=== PATIENT | male | born 1945 | race Caucasian/White ===

== ENCOUNTER 2019-08-19 13:13 | Inpatient (IN) | payer OTHER, MEDICARE ==
[~2019-08-19] VITALS: Ht 175.3 cm; Wt 106.5 kg
[2019-08-19 14:28] LABS: URINE BILIRUBIN NEGATIVE (Negative); URINE BLOOD NEGATIVE (Negative); URINE CLARITY CLEAR; URINE COLOR YELLOW; URINE GLUCOSE-RANDOM* NEGATIVE (Negative); URINE KETONES NEGATIVE (Negative); URINE LEUKOCYTES-REFLEX NEGATIVE (Negative); URINE NITRITE-REFLEX NEGATIVE (Negative); URINE PROTEIN (DIPSTICK) NEGATIVE (Negative); URINE SPECIFIC GRAVITY 1.015 (1.005-1.035); URINE UROBILINOGEN 0.2 E.U./dl (0.2-1.0)
[2019-08-19 14:34] LABS: AMP/METHAMP Negative (Negative); BARBITURATES Negative (Negative); BENZODIAZEPINES Negative (Negative); COCAINE Negative (Negative); METHADONE Negative (Negative); OPIATES Negative (Negative); PCP Negative (Negative)
[2019-08-19 14:34] LABS: BASOPHILS 0.6 % (0.0-2.0); EOSINOPHILS 1.6 % (0.0-3.0); HEMATOCRIT 37.4 % (42.0-52.0); LYMPHOCYTES 27.2 % (24.0-44.0); MCHC 34.9 g/dL (28.0-37.0); MCV 91.7 fL (80.0-100.0); MONOCYTES 7.1 % (1.0-8.0); PLATELET COUNT 228 thou/uL (150-400); POLYS 63.5 % (36.0-66.0); RBC 4.08 mil/uL (4.50-6.00); RDW 14.7 % (10.5-14.5); WBC 7.8 thou/uL (4.0-11.0)
[2019-08-19 14:41] LABS: CALCIUM 9.1 mg/dL (8.5-10.1); CREATININE 1.3 mg/dL (0.7-1.3); POTASSIUM 3.5 mmol/L (3.5-5.1)
[2019-08-19 14:48] LABS: ALBUMIN 3.5 g/dL (3.4-5.0); TOTAL BILIRUBIN 0.7 mg/dL (<0.1-1.0); TOTAL PROTEIN 7.1 g/dL (6.4-8.2)
[2019-08-19] MEDS ORDERED: MIRTAZAPINE45 MG PO (15:11)
[2019-08-19] MEDS ORDERED: NEURONTIN 300300 M1 PO (15:12)
[2019-08-19] MEDS ORDERED: QUETIAPINE FUM100 MG PO (15:12)
[2019-08-19] MEDS ORDERED: QUETIAPINE FUMA25 MG PO (15:12)
[2019-08-19] MEDS ORDERED: PRAVASTATIN SOD20 MG PO (15:13)
[2019-08-19] MEDS ORDERED: LORAZEPAM 1 MG T1 MG PO (15:14)
[2019-08-19] MEDS ORDERED: FLOMAX0.4 MG PO (15:14)
[2019-08-19 17:20] VITALS: BP 156/78
[2019-08-19 17:21] VITALS: BP 147/71
[2019-08-19 19:25] VITALS: BP 142/38
[2019-08-19 19:44] LABS: PO2 111.1 mmHg (80.0-100.0); sO2 98.8 % (92.0-98.0)
[2019-08-19 19:46] LABS: PCO2 17.6 mmHg (35.0-45.0); pH 7.602 (7.360-7.450)
--- NOTE | 2019-08-19 20:44 | NUR ---
1720 Admitted from ER for increased anxiety/depression. Admission X3 in past month for same issue per report. Alert and orientated X 4, denies SI/HI. Calm and cooperative. Increased resp rate of 35/min, states he is not SOB, just breathing fast. Denies pain. Rates anxiety 8/10 but does not appear overly anxious but tired. Breath sounds clear t/o, bilaterally equal with hyperaeration at times. No nasal flaring or retractions. O2 sat 100% on RA. Attempted to distract pt to see if RR decreased but consistently remained between 35-40 breaths per min. Reg HR with distant tones auscultated with rate in 50s. Color pink with brisk capillary refill and palpable peripheral pulses. No edema in lower extremities. Voided approximately 150 cc yellow urine per hat in toilet, sample collected. Active bowel sounds over soft, rounded abdomen. States he had BM yesterday. Small 1 cm circular skin tag per L buttock. Able to stand with assistance with walker and ambulate with irregular gait to bathroom. 1730 Called ROSALINE Munson d/t increased RR. Asked to call hospitalist to have them assess pt. Dr. Rincon paged. States he does not know pt and will have to come see pt. 1830 RR remains elevated 35-40/min with pt reporting increased fatigue. Sitting forward on bed with occassional lip pursing. Slight supracostal retractions. ROSALINE Wu and Dr. Rincon paged again to assess pt. Pt. compliant with completing forms and answering admit questions. O2 sat remains 100%. 192 1mg Ativan given per order. ROSALINE Munson spoke with Dr. Clinton. Will obtain ABG. RR remains consistently 38-40, with increasing fatigue. HR remains 50s and regular. BP stable.
[2019-08-19 22:11] LABS: CHOLESTEROL 121 mg/dL (<200); HDL CHOLESTEROL 23 mg/dL (>40); LDL CHOLESTEROL 67 mg/dL (<100); TC:HDL 5.3 Ratio (Not establshd); TRIGLYCERIDE 156 mg/dL (<150); VLDL 31 mg/dL (<40)
[2019-08-19 22:12] LABS: SERUM ASSESSMENT Clear
--- NOTE | 2019-08-19 22:44 | NUR ---
Assumed care of patient this pm shift. Patient tachypnic breathing between 30-40 breaths per minute. Patient short of breath and anxious. Talked with Dr. Clinton and Thelma Meza KENNEL MANAGER and it was decided to move patient to the medical floor. Patient had arterial blood gases and an xray done at bedside. Patients assessment shows clear breath sounds diminished in the bases, active bowel sounds, and s1 s2 heard with auscultation. Patients scheduled medications given. At 2230 patient states that his breathing is getting better. We will continue to monitor.
== END 2019-08-19 22:48 | disposition home or self-care (01) | DRG 204 ==
LOC: ER 13:13 → EROBS 15:19 → SBH 17:17
PROVIDERS: Nurse Practitioner Family; ADMIT Psychiatry & Neurology Psychiatry
DX: R06.82 Tachypnea, not elsewhere classified (principal); G11.8 Other hereditary ataxias; F41.9 Anxiety disorder, unspecified; F32.9 Major depressive disorder, single episode, unspecified; N40.0 Benign prostatic hyperplasia without lower urinary tract symptoms; F12.90 Cannabis use, unspecified, uncomplicated; E78.5 Hyperlipidemia, unspecified; Z79.899 Other long term (current) drug therapy
CPT/HCPCS: 10880

== ENCOUNTER 2019-08-19 22:38 | Inpatient (IN) | payer OTHER, MEDICARE ==
[~2019-08-19] VITALS: Ht 170.2 cm; Wt 106.8 kg
[~2019-08-19 22:38] MED LIST: FLOMAX0.4 MG PO; LORAZEPAM 1 MG T1 MG PO; MIRTAZAPINE45 MG PO; NEURONTIN 300300 M1 PO; PRAVASTATIN SOD20 MG PO; QUETIAPINE FUM100 MG PO; QUETIAPINE FUMA25 MG PO
[2019-08-19 23:52] VITALS: BP 115/83
--- NOTE | 2019-08-20 01:18 | NUR ---
patient admitted per w/c from [facility]. IS ALERT X 3. AND FOLLOWS COMMANDS. NO EDEMA NOTED TO LOWER EXTREMITIES. LUNGS CTA. NO PRODUCTIVE COUGH. IS CALM AT PRESENT TIME NO HYPERVENTALATING NOTED. HR 58 TELE- SHOWS SB. VS STABLE. NO SKIN ISSUES. ALL FORMS SIGNED. DOES UNDERSTAND STAFF. IV STARTED IN RIGHT HAND WITH #22 IS SL. ALL HS MEDS GIVEN BY BEHAVIOR STAFF PRIOR TO HIM COIMING DOWN HERE. HAS HAD A STROKE IN THE PAST WITH NO RESIDUAL NOTED. DOES TALK SLOW AT TIMES BUT CAN BE UNDERSTOOD. CONT PLAN OF CARE. NOT ANXIOUS AT PRESENT.
--- NOTE | 2019-08-20 02:56 | NUR ---
PATIENMT SLEEPING WELL. NOTED ATAXIA WHEN HE IS UP. NOTANXIOUS NOW. SLEEPING WELL. CONT PLAN OF CARE. DENIES ANY PAIN.
--- NOTE | 2019-08-20 03:41 | NUR ---
PATIENT REFUSED BREATHING TX AT 0400. DENIES ANY PAIN. NO ANXIETY NOTED.
[2019-08-20 05:05] VITALS: BP 106/53
[2019-08-20 08:28] LABS: HEMATOCRIT 34.4 % (42.0-52.0); HEMOGLOBIN 11.8 gm/dL (14.0-18.0); MCH 31.9 pg (26.0-34.0); MCHC 34.3 g/dL (28.0-37.0); MCV 93.1 fL (80.0-100.0); RBC 3.7 mil/uL (4.50-6.00); RDW 14.6 % (10.5-14.5); WBC 5.4 thou/uL (4.0-11.0)
[2019-08-20 08:41] LABS: ANION GAP 8 mmol/L (7-16); BUN 15 mg/dL (7-18); CALCIUM 8.5 mg/dL (8.5-10.1); CHLORIDE 106 mmol/L (98-107); CO2 25 mmol/L (21-32); CREATININE 1.2 mg/dL (0.7-1.3); GLUCOSE 91 mg/dL (74-106); SODIUM 139 mmol/L (136-145); TROPONIN-I <0.06 ng/mL (<0.06)
[2019-08-20 09:16] VITALS: BP 127/61
[2019-08-20 11:05] LABS: TSH 3.983 uIU/mL (0.358-3.740)
[2019-08-20 11:35] LABS: FOLIC ACID 47.8 ng/mL (8.6-58.9)
[2019-08-20 12:55] VITALS: BP 113/59
[2019-08-20 17:55] VITALS: BP 100/57
--- NOTE | 2019-08-20 18:56 | NUR ---
PT A&OX3-4. UP WITH ASSIST X1 TO BSC. IV INTACT IN R HAND. O2 SAT IS AT 99%. VSS BRADYCARDIC ON TELE. HAS BEEN TACHYPNEA AND VERY ANXIOUS TODAY, PLANS ARE FOR PT TO RETURN TO 5S WHEN DC'D FROM HERE. CALL LIGHT W/I REACH, BED ALARM ON.
[2019-08-20 19:31] VITALS: BP 138/59
--- NOTE | 2019-08-21 03:21 | NUR ---
ASSESSMENT DOCUMENTED. PT BEEN RESTING IN NO ACUTE DISTRESS.A/OX4.PT SLEEPING MOST OF THE NOC.NO RESP DISTRESS.VSS.USES URINAL TO VOID.SINUS JAMESON ON MONITOR.PT DENIES PAIN OR ANY DISCOMFORT AT THIS TIME.POC IS TO OBSERVE AND TREAT WITH POSSIBLE TO TRANSFER TO [facility].
[2019-08-21 04:55] VITALS: BP 111/59
[2019-08-21 06:09] LABS: % SATURATION 18 % (20-39); IRON 44 ug/dL (65-175); TIBC 244 ug/dL (250-450)
[2019-08-21 08:00] VITALS: BP 123/66
[2019-08-21 12:00] VITALS: BP 126/68
[2019-08-21 14:46] VITALS: BP 126/68
--- NOTE | 2019-08-21 15:18 | NUR ---
Patient admits with tachacardia. Patient initially on SBU for short time when transferred to telemetry unit. Spoke with patient over phone. 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 All needs on one level and uses a walker to ambulate. Patient reports 3 dtrs all supportive, 2 live in area. Patient reports anxiety has hindered him caring for himself at home. PCP Dr Barillas. Patient has been at [facility] unit in past. Discussed possible transition to SBU and patient is agreeable to transfer. Casemgt following.
--- NOTE | 2019-08-21 15:44 | NUR ---
ASSUMED CARE OF PT AT SHIFT CHANGE. ASSESSMENTS CHARTED. MEDS GIVEN PER JUL. PT A&OX 3-4, FORGETFUL. PT TACHYPNEIC AND ANXIOUS. GAVE PRN DIAZEPAM AFTER SCHEDULED DOSE HAD NO EFFECT. PT STILL TACHYPNEIC DURING DR LOZANO VISIT. AFTER ADMINISTERING THORAZINE ORDERED, PT EXPERIENCED AKATHISIA, NOTIFIED MARTA. ADMIN ATIVAN ORDERED TO TREAT AKATHISIA. PT WAS SLEEPING WITH NO DISTRESS AFTER A SHORT TIME. WILL CONTINUE TO MONITOR AND FOLLOW POC.
[2019-08-21 18:00] VITALS: BP 154/85
--- NOTE | 2019-08-21 18:45 | NUR ---
ASSUMED CARE OF THE PT AT 1800. PT IS RA. IV R HAND SALINE LOCKED. NO C/O OF PAIN. PT ATE DINNER BEFORE TRANSFERRING. FALL PRECAUTIONS IN PLACE, BED IN THE LOWEST POSITION AND CALL LIGHT IS WITHIN REACH. WILL CONTINUE TO MONITOR THE PT.
[2019-08-21 19:24] VITALS: BP 149/81
--- NOTE | 2019-08-21 22:12 | D ---
[facility] [place] [address] [place] [address] DISCHARGE SUMMARY Name: RAUL GREENE Room #: 438-P ADM IN M.R.#: [id number] Admission: 08/19/19 Attend Phys: Kobi Rincon MD Discharge: Date of : 49 Report #: [id number] THIS REPORT FOR: cc: IZA CAUSEY - Family physician unknown Kobi Clinton DO ~ THIS REPORT FOR: //name// CC: Kobi JAIN unknown IZA CAUSEY DATE OF SERVICE: 08/19/2019 DISPOSITION NOTE Date of admission 08/19/2019 around 1700 to the [facility] Unit. HOSPITAL COURSE: The patient was emergently discharged around 2100 on 08/19/2019. The patient was not seen by a psychiatric provider. He was admitted for severe depression and anxiety through the Emergency Room. Nursing staff noted his respiratory rate was in the 30s, shortly after 5 p.m., he was given Ativan around 6:30 p.m. a milligram to see if we could slow down, his tachypnea continued. I ordered an ABG, pCO2 came back critically low at 17.6, pH was 7.602. There were concerns for potential for Respiratory failure and Thelma Meza APRN saw him and agreed to have him moved to monitored medical bed. The patient was emergently discharged without the usual discharge preparations due to his tachypnea and concern for potential cardiovascular collapse. I will be consulting on the patient on wednesday in CCU and so dictate a full H and P from that. <ELECTRONICALLY SIGNED> By: Kobi Clinton, 08/21/19 2212 1033 1045 Kobi Clinton, /nt
--- NOTE | 2019-08-21 22:14 | HC ---
[facility] [address] [place] [address] CONSULTATION Name: RAUL GREENE Room #: 438-P ADM IN M.R.#: [id number] Admission: 08/19/19 Attend Phys: Kobi Rincon MD Discharge: Date of : 49 Report #: [id number] THIS REPORT FOR: cc: IZA CAUSEY - Family physician unknown Kobi Clinton DO ~ CC: Kobi JAIN unknown IZA CAUSEY DATE OF SERVICE: 08/20/2019 PRIMARY ATTENDING: Dr. Kobi Rincon. CONSULTING PSYCHIATRIST: Kobi Clinton DO REASON FOR CONSULTATION: Severe depression, anxiety, tachypnea. The patient was discharged from a very brief stay on the [facility] to the CCU last night due to his refractory tachypnea. SOURCES OF INFORMATION: Interview with the patient, Emergency Room and chart notes. Phone call with his daughter, Jayde, her number is [phone]. The patient's primary care provider is a physician volleyball assistant coach name Aurelio in [place], [place]. His outpatient psychiatrist is Lewis King in [place]. HISTORY OF PRESENT ILLNESS: This is a 73-year-old male brought to the Emergency Room by his daughter for complaints of severe anxiety. The patient has a history of severe anxiety and depression, was admitted to [facility] on 07/14/2019 for the same. He spent about a week and a half in their Behavioral Health Unit, was reportedly taken care of by Dr. Peña. The daughter described to me he was discharged from the psychiatric admission. Spent about 4 days at home where he was not able to care for himself, became weaker, was taken back to [facility], was admitted medically for dehydration and then was sent to a nursing home facility it sounds like and prior to his admission here at [facility] he was only home for a week, so the last month has been a fairly tumultuous period for his health. The patient describes that he has low energy, does not feel like doing anything, only does the bare essentials like going to the supermarket. He denies change in weight or appetite over the last month. He endorses prominent anhedonia. He denies intent to end his life or harm himself or harm others. The patient currently does not have a bahai affiliation. PSYCHIATRIC REVIEW OF SYSTEMS: He denies SI, HI, flashbacks, nightmares. Endorses low mood, anxiety without trigger. REVIEW OF SYSTEMS: From the Emergency Room: [address] [address] CONSULTATION Name: RAUL GREENE Room #: 438-P [facility] IN M.R.#: [id number] Admission: 08/19/19 Attend Phys: Kobi Rincon MD Discharge: Date of : 49 Report #: [id number] CONSTITUTIONAL: Denies fever, chills, malaise, unexplained weight change. EYES: Denies eye pain, visual change or discharge. HENT: Denies hearing changes, ear drainage, ear infections, ear pain, neck pain or neck stiffness. RESPIRATORY: Denies cough, hemoptysis. He does endorse respiratory distress to me this morning; it is fast breathing. CARDIOVASCULAR: Denies chest pain, chest pain with exertion or edema. GASTROINTESTINAL: Denies abdominal pain, nausea, vomiting or diarrhea. GENITOURINARY: Denies burning, frequency or dysuria. MUSCULOSKELETAL: Denies back pain, joint pain, muscle weakness or myalgias. SKIN: Denies rash. NEUROLOGIC: Denies weakness, headache or loss of consciousness. PSYCHIATRIC: As above. Otherwise, 10-point review of systems negative. SOCIAL HISTORY: He denies tobacco use. Denies alcohol use. Denies recreational drug use. ALLERGIES: No known allergies. HOME MEDICATIONS: Mirtazapine 40 mg p.o. at bedtime, gabapentin 300 mg at bedtime, Seroquel 100 mg p.o. daily, Seroquel 25 mg q. 6 hours p.r.n. for anxiety and agitation. Pravastatin tablet daily, tamsulosin 0.4 mg p.o. at bedtime, lorazepam 1 mg p.o. daily. Weight 106.503 kilos. LABORATORY DATA: From the ER workup, sodium 139, potassium 3.5, chloride 106, bicarbonate 20, anion gap 13, BUN 20, creatinine 1.3, estimated GFR 54, glucose 104, calcium 9.1, total bilirubin 0.7, AST 19, ALT 25, alkaline phosphatase 81, total protein 7.1, albumin 3.5, white count 7.8, H and H 13.0 and 37.4, platelet count 228. UDS was negative. Urinalysis was grossly negative. In the ER, his respiratory rate was 22, ventricular rate was 61. PAST SURGICAL HISTORY: Appendectomy. He did have an upper GI endoscopy 04/2019, significant for gastroesophageal reflux disease, he has not been medicated for that since. DEVELOPMENTAL HISTORY: Born and raised in [place], high school graduate, 4 year service [employer] honorable discharge. He did see combat. Denied symptoms of PTSD. States he is eligible for VA benefits. 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 He states he has been retired about 10 years, reportedly . His , had been . in 2016 of esophageal cancer. His mental health problems developed after that. [facility] [address] [place] [address] CONSULTATION Name: RAUL GREENE Room #: 438-P [facility] IN M.R.#: [id number] Admission: 08/19/19 Attend Phys: Kobi Rincon MD Discharge: Date of : 49 Report #: [id number] FAMILY MEDICAL HISTORY: Brother, sister deal with major depression. According to the daughter, the brother is roughly symptomatic as the patient and his mother is alive and well at 93. Question of Parkinson's disease. Father is . PAST MEDICAL HISTORY: Cerebellar ataxia. He does use a walker at baseline. PSYCHIATRIC MEDICATION HISTORY: Has been treated with Cymbalta in the past, Effexor in the past and Remeron. During [facility] hospitalization, he had significant medication changes and was placed on Remeron. The daughter states prior to him coming home to rehab only been home periods before is overusing Ativan, taking 67 mg a day. Daughter describes him as nonfunctional, uncontrollable anxiety, morbid thinking that he were , though she feels he does not have the guts, lack of a better word to kill herself. She also interestingly states prior to this tachypnea, he was doing knee knocking and shaking and that changed about a month ago. The patient's respiratory rate had been up in the mid 30 this morning. VITAL SIGNS: Temperature 36.7, pulse 58, respirations 22, BP 127/61, O2 sat 97%. When I saw him at bedside, he was positioned upright in bed on the side speaking with me, so gait was not tested. PHYSICAL EXAMINATION: Unkempt male, appearing older than stated age. Gait not tested. MENTAL STATUS EXAMINATION: This is a well-developed, unkempt male, obese. Attention intact. Concentration intact. Speech I do not know if he had a speech impairment or it was due to the breathing, but I would say it was a bit of staccato where you had to listen very carefully to understand what he was saying. Thought process linear and goal directed. Thought content focused on his current symptoms. Some psychomotor agitation. Denied psychomotor retardation. Mood depressed, anxious, congruent, diminished range, dysphoric. Denied auditory, visual, or tactile hallucinations. Denied suicidal intent or plan. Denied homicidal intent or plan. Endorses helplessness, hopelessness. Memory not formally tested today. Insight limited. Judgment limited. Fund of knowledge average range. FORMULATION: A 73-year-old male presenting for severe depression and anxiety with complication of profound tachypnea, hypocarbia and alkalosis. The patient has a history of depression, anxiety and does appear to have significant familial component. DIAGNOSES: At this time, major depressive disorder, recurrent, severe degree. [address] [address] CONSULTATION Name: RAUL GREENE Room #: 438-P [facility] IN M.R.#: [id number] Admission: 08/19/19 Attend Phys: Kobi Rincon MD Discharge: Date of : 49 Report #: [id number] Generalized anxiety disorder favored over panic, obesity. Medical comorbidities include BPH, hyperlipidemia, sporadic cerebellar ataxia. PLAN: Patient is admitted to CCU. Continue to follow along with the primary medical team. Anticipate discharge and readmission to [facility] tomorrow. Regarding his medications, I made several changes. I put him on scheduled diazepam 2.5 mg at 0900, 1500, 2100. I discontinued lorazepam. I discontinued all Seroquel. I gave him 2.5 mg q. 4 p.r.n. Valium. Agree with mirtazapine 40 mg at this time. Hospitalist has atorvastatin ordered. I think that is fine. Tamsulosin 0.4 mg p.o. daily. Neurontin is currently scheduled at 300 mg 4 times a day, would leave that in place for now as it does have some anxiolytic property and do not have a good handle today on the patient's pain situation, but he did not complain of musculoskeletal pain when I saw him. He is a full code. ALLERGIES: PENICILLIN. STRENGTHS: He is insured. He has supportive family. WEAKNESSES: Limited support in terms of caregivers at home, chronicity of depression. ESTIMATED LENGTH OF STAY: One more day on CCU 10-14, later on at [facility]. Time spent on interview, review of records, coordination of care was greater than 90 minutes. <ELECTRONICALLY SIGNED> By: Kobi Clinton DO 08/21/19 2214 1049 1139 Koib Clinton DO /nt
[2019-08-22 04:39] VITALS: BP 123/76
--- NOTE | 2019-08-22 05:44 | NUR ---
RECEIVED CARE OF THIS PATIENT AT 1930. PATIENT ALERT AND ORIENTED X4.UP TO BATHROOM WITH SBA AND WALKER. IV IN RH. STATED PAIN AT 3/10, REFUSED PAIN MED. SLEPT MOST OF NIGHT. PATIENT WAS ANXIOUS AND CONFUSED TO WHY WAS ON THIS UNIT AND N0T ON THE REHAB FLOOR. EXPLAINED TO HIM THE REASON WHY. HE SAID HE UNDERSTOOD.
[2019-08-22 07:56] VITALS: BP 127/87
[2019-08-22] MEDS ORDERED: LORAZEPAM 1 MG T1 MG PO (10:42)
[2019-08-22] MEDS ORDERED: NEURONTIN 300300 M1 PO (10:42)
--- NOTE | 2019-08-22 13:08 | NUR ---
ASSUMED CARE OF THE PT AT 0700. PT IS STANDBY ASSIST X1. PT USES A URINAL. R HAND IV REMOVED AND PT IS DISCHARGING TO 5S PSYCH. PT TAKES MEDS WHOLE. NO C/O PAIN. LUNGS ARE CLEAR AND RR ARE STABLE. PT IS UP IN CHAIR, NO HYPERVENTILATING. FALL PRECAUTIONS IN PLACE, BED IN LOWEST POSITION AND BED/CHAIR ALARM ON. PT D/C PPWK WAS TRANSFERED WITH PT TO 5S, REPORT GIVEN TO JAYCEE.
--- NOTE | 2019-08-22 13:16 | NUR ---
CARE TEAM INDICATED THAT PT IS MEDICALLY STABLE TO TRANSITION BACK TO [address] [place] [address] THIS DAY. PT IS AWARE AND AGREEABLE. VM LEFT FOR PT'S DTR. NO OTHER CM INTERVENTION INDICATED. CASE CLOSED.
== END 2019-08-22 13:13 | DRG 189 ==
LOC: 2N 22:38 → 4S 08-21 18:15
PROVIDERS: Nurse Practitioner Family; Psychiatry & Neurology Psychiatry; ADMIT Hospitalist
DX: J96.01 Acute respiratory failure with hypoxia (principal); F33.2 Major depressive disorder, recurrent severe without psychotic features; G11.8 Other hereditary ataxias; E66.9 Obesity, unspecified; N40.0 Benign prostatic hyperplasia without lower urinary tract symptoms; E78.5 Hyperlipidemia, unspecified; D50.9 Iron deficiency anemia, unspecified; E53.8 Deficiency of other specified B group vitamins; I10 Essential (primary) hypertension; F41.9 Anxiety disorder, unspecified; Z90.89 Acquired absence of other organs; Z68.36 Body mass index [BMI] 36.0-36.9, adult; Z88.0 Allergy status to penicillin; Z86.73 Personal history of transient ischemic attack (TIA), and cerebral infarction without residual deficits; Z87.891 Personal history of nicotine dependence; Z79.899 Other long term (current) drug therapy
CPT/HCPCS: 10081; 10102

== ENCOUNTER 2019-08-22 12:57 | Inpatient (IN) | payer OTHER, MEDICARE ==
[~2019-08-22] VITALS: Ht 175.3 cm; Wt 101.5 kg
[2019-08-22 14:07] VITALS: BP 136/82
--- NOTE | 2019-08-22 18:01 | NUR ---
1400 Admitted from medical unit for depression/anxiety. Alert and orientated X4, denies SI/HI. Does admit to wanting to go to sleep and not wake up over past month. Ambulates with walker d/t sporadic ataxia, needs supervision d/t slightly unsteady gait at times. RR 36-40 with slight supracostal retractions. Breath sounds clear. RR mid 20s when eating, distracted with paperwork ect. Reg HR, bradycardic in 50s. Color pale pink with 3 sec capillary refill and palpable peripheral pulses. No edema in extremities. Yellow urine per urinal. Hypoactive bowel sounds over soft, rounded abdomen. Dr. Clinton aware of admission.
[2019-08-22 20:00] VITALS: BP 128/80
[2019-08-22 20:02] VITALS: BP 128/80
--- NOTE | 2019-08-22 22:26 | H ---
[facility] [place] [address] [place] [address] HISTORY AND PHYSICAL Name: RAUL GREENE Room #: 519A-A ADM IN M.R.#: [id number] Admission: 08/22/19 Attend Phys: Kobi Clinton DO Discharge: Date of : 49 Report #: [id number] THIS REPORT FOR: cc: IZA CAUSEY - Family physician unknown Kobi Clinton DO ~ CC: Kobi JAIN unknown IZA CAUSEY DATE OF SERVICE: 08/22/2019 INPATIENT PSYCHIATRIC EVALUATION Seen in Behavioral Health Unit. Of note, I previously saw this patient on the coronary care unit here at [facility], so this will be abbreviated evaluation. SOURCES OF INFORMATION: Interview with the patient, chart review, previous psychiatric notes. REASON FOR ADMISSION: Severe depression and anxiety. HISTORY OF PRESENT ILLNESS: This is a 73-year-old male who had been initially briefly admitted for about 4 hours this past 08/19/2019 to the [facility] and was tachypneic and was moved to the CCU that evening and he was now readmitted to the [facility] for further evaluation and treatment of his depression. He states he is doing better today. Yesterday, he had received medication trials of diazepam, Thorazine and lorazepam all in one day. The verdict was lorazepam was the most efficacious and side effect free for the patient. Diazepam has shown limited benefit in escalating doses. The patient had an acute akathisic reaction to a single dose of Thorazine. The patient has denied SI, HI. His respiratory rate is in the low 20s and it was back in the 30s and when he got on our unit. I discussed with him that I will turn up the notch slowly on the lorazepam; however, we need to be cautious with it given his age and his benzodiazepine. When he was admitted to the Medical Unit, he had recently been admitted to [facility] 07/13 for extreme anxiety, was placed in Behavioral Health Unit approximately 2 weeks. He was discharged home and was back one day and was admitted for an additional 4 days for treatment of his anxiety. PAST MEDICAL HISTORY: Hyperlipidemia, BPH, sporadic cerebellar ataxia. PAST SURGICAL HISTORY: Appendectomy. SOCIAL HISTORY: Denies alcohol use, any recreational drug use. Former smoker [address] [address] HISTORY AND PHYSICAL Name: RAUL GREENE Room #: 519A-A [facility] IN ..#: [id number] Admission: 08/22/19 Attend Phys: Kobi Clinton, Discharge: Date of : 49 Report #: [id number] with 15-year pack history and reported that he smoked 20 years ago. Currently lives at home by himself. FAMILY HISTORY: Mother is of old age. Father is with lung disease. Sister with renal disease. The patient has 3 children who are healthy. His daughter, Jayde is most involved. ALLERGIES: PENICILLINS. REVIEW OF SYSTEMS: The patient denies SI, HI, auditory, visual, or tactile hallucination. Reports some depression and anxiety. He denies chest pain, overt shortness of breath. Otherwise, review of systems are negative. LABORATORY DATA: From the Medical Unit H and H 11.8 and 34.4, white count 5.4, platelet count 194. Chemistries on the ; sodium 139, potassium 4.0, chloride 106, bicarbonate 25, anion gap 8, BUN 15, creatinine 1.2, estimated GFR 60, glucose 91, calcium 8.5. Iron 44, TIBC 244, percent sats 18, ferritin 42. Total bilirubin 0.7, AST 19, ALT 25, alkaline phosphatase 81. Troponin less than 0.06. Total protein 7.1, albumin 3.5, triglycerides 156, cholesterol 121, LDL 67, HDL 23. B12 level was 434. Vitamin D level of 32.5, which is normal. Folate 47.8. TSH 39.83. CURRENT MEDICATIONS: Atorvastatin 10 mg p.o. daily for hyperlipidemia, tamsulosin 0.4 mg p.o. at bedtime for BPH, mirtazapine 45 mg p.o. for depression, gabapentin 300 mg 4 times a day. Lorazepam 1 mg 3 times a day at 09:00, 05:00 and 09:00; I am going to increase to 1.25 mg. Otherwise, house PRNs. PHYSICAL EXAMINATION: VITAL SIGNS: Today, temperature 36.5, pulse 57, respirations 38, BP 136/82, O2 sat 100%. MUSCULOSKELETAL: Did not test ambulation. MENTAL STATUS EXAMINATION: This is a well-developed, mildly obese male, appearing stated age. Attention intact. Speech interrupted due to his tachypneic breathing, so abnormal speech there. No psychomotor retardation. Thought process is linear and goal directed. Thought content focused on the present. Denied SI or HI. Denied auditory, visual, or tactile hallucinations. Memory not formally tested. Insight limited. Judgment fair. Fund of knowledge average. FORMULATION: A 73-year-old obese male admitted for severe depression and uncontrollable anxiety, now being readmitted. PLAN: Evaluate, stabilize, obtain collateral. We will increase lorazepam to 1.25 mg 3 times a day. Continue other medications. Dr. Rincon will be providing [address] [address] HISTORY AND PHYSICAL Name: RAUL GREENE Room #: 519A-A ADM IN .R.#: [id number] Admission: 08/22/19 Attend Phys: Kobi Clinton DO Discharge: Date of : 49 Report #: [id number] ongoing hospital consultation, he managed him downstairs. Estimated length of stay 5-10 days. I would like transition social worker to organize with the daughterJayde a telephonic family meeting in next few days. STRENGTHS: He is insured, has supportive family. WEAKNESSES: Advancing age, relatively limited social support. <ELECTRONICALLY SIGNED> By: Kobi Clinton DO 08/22/19 2226 1630 1722 Kobi Clinton DO /nt
--- NOTE | 2019-08-23 04:31 | NUR ---
Care transfered 08-22-191999 pt sitting on edge of bed AAOx3, skin w/d; upon auscultation All lungs escalante clear, RR even and non-labored on RA; HT S1/S2 RR; ABD rounded Hypo in all four quads; Pt denies any pain or SI/HI at this. Pt denies any further concerns at this time. Bed in lowest positon with alarm on 2044 pt supine in bed with eyes closed, easily aroused to voice and head of bed reposition to 90 degree for medication admin. Pt reposition back to a comfortable position, bed in lowest position and alarm on. 230 pt resting with eyes closed RR even and non-labored on RA; 0000 pt right side lying with eye closed, easily aroused to voice, pt reposition self to sitting position for medication admin. 0100 pt supine resting with eyes closed RR even and non labored on RA. 0300 pt supine resting with eyes closed RR even and non-labored zero acute distress.
[2019-08-23 08:29] VITALS: BP 147/79
--- NOTE | 2019-08-23 14:31 | NUR ---
MINIMAL VERBAL RESPONSES TO QUESTIONS ASKED DURING AM ASSESSMENT WILL PROVIDE YES OR NO ANSWERS ONLY. DID TAKE AM MEDICATIONS PO WITHOUT RESISTANCE AND FED SELF BREAKFAST. RELUCTANT TO COME OUT OF ROOM TO JOIN PEERS. NOTED TO BE RESTLESS IN ROOM UP AND DOWN FREQUENTLY TO USE RESTROOM OR LOOK OUT INTO HALLWAYS. APPEARS HYPERVIGILANT,ANXIOUS FACIAL EXPRESSION-DELAYED VERBAL RESPONSES-DOES APPEAR TO WATCH OTHERS CLOSLEY. GAIT UNSTEADY AT TIMES DESPITE USE OF ROLLER WALKER AND IS NON-COMPLIENT OF REQUESTS OF STAFF TO NOT GET UP ON OWN, EATING WELL.DENIES PAIN/DISCOMFORT. DELAYED VERBAL RESPONSES AND SPEECH SLIGHTLY SLURRED-PRISCILA,MACHINE PULLER EQUAL BILAT. REMAINS HIGH FALLS RISK
--- NOTE | 2019-08-23 14:34 | NUR ---
Ninoska spoke with Jayde to complete the intake assesment and TP. This included setting upa family meeting per Dr request 08/24/19 at 10:30 am. Pt has had 8-9 years of depression and severe anxiety and [facility] reports that his siblings all have types of this too. Dr See Dr Eyal Rodríguez now but has been seeing Dr King for psych. pt has not seen an oupt therapist.
[2019-08-23 20:03] VITALS: BP 124/71
--- NOTE | 2019-08-24 02:21 | NUR ---
ASSUMED CARE ON 08/23/19 @ 1900, COOPERATED WITH ASSESSMENT, HRRR, LUNGS CTA, ABD N X 4Q. REPORTS DEPRESSION 2/10, ANXIETY 4/10, DENIES SI AND HI. IN BED, BED IN LOW POSITION.
[2019-08-24 04:21] VITALS: BP 124/71
[2019-08-24 09:01] VITALS: BP 142/77
--- NOTE | 2019-08-24 11:25 | NUR ---
ERIC and Dr clinton spoke with pt and pt's daughter Jayde about the d/c plan. Dr clinton recomendded AL wiht outpt mental health but pt was adament about going home first at least " for a few days". Dr Clinton agreed to d/c this pt on Wednesday at 1pm to home. Jayde stated she will be contacted Don who works for the dept of aging in [facility] for help in finding an AL after this pt goes home, as they declined waiting for a few more days inpt while AL can be coordinated by this worker. ERIC offered to assist and coordinate with Don and sent referrals if needed.
--- NOTE | 2019-08-24 13:25 | NUR ---
Correction Don is not [facility] for [facility] , but a private agency that finds placement for private pay with " nursing home authority" . Julian [phone] reported that family would like referral sent to [facility] (f) [phone]. ERIC sent referral.
--- NOTE | 2019-08-24 14:01 | NUR ---
HAS APPEARED ANXIOUS THROUGHOUT AM-RESTLESS IN ROOM,UP AND DOWN SEVERAL TIMES IN ROOM DESPITE BEING ASKED TO WAIT FOR ASSITANCE D/T UNSTEADY GAIT. WHEN ASKED ABOUT ANXIETY IS UNABLE TO RATE NUMERICALLY BUT STATES "A LITTLE". NEEDS MUCH ENCOUARAGEMENT TO COME OUT OF ROOM AT ALL,MD WAS ABLE TO GET HIM TO COME TO DAY ROOM BRIEFLY OTHERWISE WITHDRAWN TO ROOM. SPEECH REMAINS SLIGHTLY SLURRED BUT IMPROVED FROM 08/22 ASSESSMENT,NO DROOLING NOTED. LITHOSTRIPPER EQUAL BILATERALLY AND PRISCILA. ANGRY FACIAL EXPRESSION AND REFUSING TO TALK OR EAT AFTER MEETING WITH AND SW-PER SW REPORT REFUSES TX TEAM RECOMMENDATIONS TO DC TO LONG-TERM FACILITY-INSISTING THAT HE CAN GO HOME. DENIES SI/SH/HI. DENIES C/O PAIN/DISCOMFORT
--- NOTE | 2019-08-24 16:58 | NUR ---
Ninoska sent referrla to [facility] and [facility] in [facility]. NINOSKA confimred this with Julian Salas via email.
[2019-08-24 20:26] VITALS: BP 127/77
--- NOTE | 2019-08-25 04:48 | NUR ---
Assumed care of pt @ 1900. Pt calm et cooperative this shift. Pt's speech quite garbled making it very difficult to understand his needs. Took medications whole without difficulty. Ambulates with unsteady gait requiring close monitoring. Isolated in room most of shift. VSWNL. Health assessment with no abnormalities noted other than previously noted. Denies SI/HI @ present time. Currently resting in bed with eyes closed. Will continue to monitor per protocol.
[2019-08-25 07:59] VITALS: BP 140/88
--- NOTE | 2019-08-25 12:06 | NUR ---
SW participated on a phone call with Pt's daughter Jayde Mcintosh and Dr. Shrestha. Ms. Mcintosh was concerning about Pt recieveing PT while on the unit. Dr. Shrestha confirmed PT services for Pt. Dr. Shrestha also offered a visit with Pt if Ms. Mcintosh was intrested. Ms. Mcintosh stated she would like to visit and would get back with SW on time and day she is able to visit Pt. Ms. Mcintosh also provided SW with information for [facility] in [place], [place] , . ERIC sent referal today 08/25/2019.
[2019-08-25 12:35] VITALS: BP 140/88
[2019-08-25 19:31] VITALS: BP 155/87
[2019-08-25 20:23] VITALS: BP 155/87
[2019-08-26 07:51] VITALS: BP 148/84
--- NOTE | 2019-08-26 08:27 | NUR ---
PT EATING BREAKFAST AT THIS TIME. PT TOOK MEDS WITHOUT ANY ISSUES. PT REQUEST TO HAVE OT THERAPY DUE TO WANTING A SHOWER. PT STATED HE DOES FEEL ANXIOUS.
[2019-08-26 08:30] VITALS: BP 131/69
--- NOTE | 2019-08-26 11:10 | NUR ---
PT SITTING ON SIDE OF BED WITH INCREASED BREATHING. PT WANTING TO HAVE AN ANXIETY PILL. TOLD PT THAT HE HAD ONE THIS AM ALREADY. PT STATED HE WANTED A SHOWER AND BED RAISED UP SO HE CAN GET UP EASILY. WALKED WITH PT TO BATHROOM WITH WALKER.
--- NOTE | 2019-08-26 13:30 | NUR ---
PT HAD SHOWER AT THIS TIME.
--- NOTE | 2019-08-26 16:15 | NUR ---
TALKED TO DAUGHTER ABOUT PT SPEECH. SHE STATED THAT HE HAD TO HAVE GABAPENTIN AT HS DUE TO HIS SPEECH WAS SLOWER WITH MEDICATION. PT TALKED TO DAUGHTER ALSO ON PHONE.
[2019-08-26 19:55] VITALS: BP 130/67
[2019-08-26 19:57] VITALS: BP 130/67
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
--- NOTE | 2019-08-27 08:00 | NUR ---
PT SITTING OUT IN DINING ROOM. PT STATED HIS ANXIETY LEVEL IS 5 ON 1-10 SCALE. PT DENIES ANY PAIN. PT DENIES ANY ISSUES WITH HIS RESP. PT STEADY WITH WALKER THIS AM.
[2019-08-27 08:50] VITALS: BP 128/79
--- NOTE | 2019-08-27 09:33 | NUR ---
Date of Admission: 08/22/19 Date of Activity Therapy Assessment:08/24/2019 Activity Goal:1:1, engagement in the milieu Initial Goal: Coping Skills Weekly progress towards goal: Did not achieve Group participation level: N/A- COVID 19 Behaviors observed:Exit Seeking. Wandering the halls and into patient rooms. Confused and disoriented. No participation in 1:1 sessions. Plan: No change towards goal
--- NOTE | 2019-08-27 18:20 | NUR ---
PT HAS BEEN COMPLIANT WITH CARE TODAY. PT DID A FIND A WORD EARLIER TODAY. PT STATED HIS DAUGHTER IS GOING TO CALL [facility] AT 1800. PT STILL HAS GARBLED SOUND TO HIS VOICE.
[2019-08-27 19:22] VITALS: BP 147/80
[2019-08-27 19:55] VITALS: BP 147/80
--- NOTE | 2019-08-28 06:55 | NUR ---
08-26 care transferred at 1915; 2004 pt AAOx3, belligerent and demanding with sarcastic comments, pt reported he has 300 million in the bank and he was leaving today with or without Doctor approval. Pt is exit seeking. Please refer to interventions for more information. Zero acute distress noted.
[2019-08-28 08:35] VITALS: BP 154/90
[2019-08-28 10:52] VITALS: BP 154/90
--- NOTE | 2019-08-28 10:53 | NUR ---
Ninoska spoke with ching and she stated that AL would not woek for her dad and thqat d/c will be going to his home with dghts providing 23/11 care. Pt does not want to try skilled again. Pt and pt dght understand the risk they are taking by going home with pt.
[2019-08-28 11:09] VITALS: BP 154/90
[2019-08-28] MEDS ORDERED: LIPITOR10 MG PO (12:15)
[2019-08-28] MEDS ORDERED: NORVASC5 MG PO (12:15)
[2019-08-28] MEDS ORDERED: FLOMAX0.4 MG PO (12:15)
[2019-08-28] MEDS ORDERED: GABAPENTIN 100100 MG PO (12:17)
[2019-08-28] MEDS ORDERED: LORAZEPAM 0.50.5 MG PO (12:18)
[2019-08-28] MEDS ORDERED: MIRTAZAPINE45 MG PO (12:18)
[2019-08-28 12:24] VITALS: BP 154/90
--- NOTE | 2019-08-28 12:45 | NUR ---
DISCHARGE INSTRUCTIONS REVIEWED WITH PATIENT AND DAUGHTER ANTONIO JACKSON WILL BE PROVIDING 24 HOUR CARE AND ADMINISTERING MEDICATIONS AT HOME. DAUGHTER ANTONIO CONTACTED VIA PHONE AND DC MED LIST REVIEWED WITH HER. INFORMED DAUGHTER THAT MEDS HAD BEEN CALLED TO [facility] IN [place] PER THERE REQUEST. DISCHRGED VIA WC ACCOMPNIED BY PAD MAKING MACHINE OPERATOR TO DAUGHTER PRIVATE VEHICLE. DENIES COMPLAINTS AT TIME OF DC-DENIES SI/SH/HI-REVIEWED WITH PATIENT WHEN TO SEEK EMERGENCY [place]
--- NOTE | 2019-08-29 16:14 | D ---
[facility] [place] [address] DISCHARGE SUMMARY Name: RAUL GREENE Room #: 519A-A DIS IN M.R.#: [id number] Admission: 08/22/19 Attend Phys: Kobi Clinton DO Discharge: 08/28/19 Date of : 49 Report #: [id number] THIS REPORT FOR: cc: IZA CAUSEY - Family physician unknown Kobi Clinton DO ~ THIS REPORT FOR: //name// CC: Kobi JAIN unknown IZA CAUSEY DATE OF SERVICE: 08/28/2019 INPATIENT PSYCHIATRIC DISCHARGE SUMMARY ATTENDING PHYSICIAN: Kobi Clinton DO. RANCH COOK: Dr. Black. DISCHARGE DIAGNOSES: Major depressive disorder, single episode, severe degree, unspecified anxiety. Comorbidities include congenital cerebellar ataxia, benign prostatic hypertrophy, hyperlipidemia and obesity. DISCHARGE PLAN: Discharging to his daughterJayde. DISCHARGE MEDICATIONS: As follows: Tamsulosin 0.4 mg p.o. at bedtime for BPH, atorvastatin 10 mg p.o. daily for hyperlipidemia, amlodipine besylate 5 mg p.o. daily for hypertension, gabapentin 200 mg p.o. 3 times a day for 3 more days and then discontinue, lorazepam 0.5 mg p.o. 3 times a day scheduled, Rx #90 was given for this. Mirtazapine 45 mg p.o. at bedtime for depression and sleep. The patient's medications were called into the [facility] on [address] [place] [address] in [place], [place]. Additionally, the patient thought he is seen by Dr. Lewis King, but I understand Dr. Wise, he is the patient of. We will review the social work note here to see if I can clarify at that time. The patient declined assisted living placement, which was recommended for him. Also, patient has relating additional diagnosis of tachypnea that accompanies his anxiety disorder. This can be so profound that his pH has been measured at 7.6 and his pCO2 at 17, all by respiratory effort, there are periods where he does go to normal respiratory rate. The patient was admitted briefly to the medical floor after spending 4 hours on the hard floor and it was discovered that this was all psychogenic, his tachypnea. H and H on 08/20/2019, 11.8 and 34.4, white count 5.4, platelet count 194. Chemistries were within normal limits. On 08/20/2019, iron 44, [facility] [address] [place] [address] DISCHARGE SUMMARY Name: RAUL GREENE Room #: 519A-A DIS IN M.R.#: [id number] Admission: 08/22/19 Attend Phys: Kobi Clinton, Discharge: 08/28/19 Date of : 49 Report #: [id number] 244, percent sats 18, which were all low, AST 19, ALT 25, alkaline phosphatase 81, total protein 7.1, albumin 3.5, triglycerides were grossly normal. Vitamin D 32.5. Folate 47.8. TSH 3.983, which is very slightly high. Toxicology was negative. Urinalysis was negative. The patient's hospital course, we had his lorazepam up to 1.25 mg daily, his speech was slurred, I reduced 0.5 mg 3 times a day. Additionally, I briefly tried propranolol with him, but his heart rate was bordering in the low 50s, high 40s, so that was discontinued. Relaxation exercises including diaphragmatic breathing and mindful meditation were introduced to the patient. He reported some help in this. I do feel this patient will need extensive psychotherapy as an outpatient to benefit further. On the day of discharge, patient was not suicidal or homicidal. PHYSICAL EXAMINATION: VITAL SIGNS: On the day of discharge are as follows: Temperature 36.6, pulse 55, respirations 17, BP 154/90. MUSCULOSKELETAL: Ambulates with walker. MENTAL STATUS EXAMINATION: This is a well-developed, obese male apparently stated age. Attention fair. Concentration fair. Speech difficult at times to understand due to his tachypnea. Thought process linear and goal directed. Thought content, relative poverty. Denied SI or HI. Denied auditory, visual, or tactile hallucinations. Mood and affect congruent, constricted. Memory not formally tested. Insight limited. Judgment fair to limited. Fund of knowledge below average. PROGNOSIS: The patient is guarded due to his refusal to go to assisted living and will depend on the support his daughter offers as well as followup with an outpatient psychiatrist. There is not an appointment time unfortunately documented in the charting. <ELECTRONICALLY SIGNED> By: Kobi Clinton DO 08/29/19 [id number] Kobi Clinton DO /nt
== END 2019-08-28 13:08 | disposition home or self-care (01) | DRG 885 ==
LOC: SBH 12:57
PROVIDERS: ADMIT Psychiatry & Neurology Psychiatry
DX: F32.2 Major depressive disorder, single episode, severe without psychotic features (principal); G11.8 Other hereditary ataxias; F41.9 Anxiety disorder, unspecified; E78.5 Hyperlipidemia, unspecified; N40.0 Benign prostatic hyperplasia without lower urinary tract symptoms; E66.9 Obesity, unspecified; Z88.0 Allergy status to penicillin; Z79.899 Other long term (current) drug therapy; Z68.33 Body mass index [BMI] 33.0-33.9, adult
CPT/HCPCS: 10880